=== PATIENT | male | born 1995 | race Asian ===

== ENCOUNTER 2020-04-21 21:22 | Inpatient (IN) | payer OTHER ==
[~2020-04-21] VITALS: Ht 167.6 cm; Wt 68.7 kg
[2020-04-21 22:24] LABS: HEMATOCRIT 43.1 % (42.0-52.0); HEMOGLOBIN 14.2 g/dl (13.5-17.5); MEAN CORPUSCULAR HGB CONC 32.9 g/dl (32.0-36.5); PLATELET COUNT, AUTOMATED 219 10^3/uL (150-450); WHITE BLOOD COUNT 5.7 10^3/uL (4.0-10.0)
[2020-04-21 22:46] LABS: AMPHETAMINES LEVEL URINE NEGATIVE (NEGATIVE); BARBITURATES URINE NEGATIVE (NEGATIVE); BENZODIAZEPINES URINE NEGATIVE (NEGATIVE); CANNABINOIDS URINE NEGATIVE (NEGATIVE); COCAINE METABOLITE URINE NEGATIVE (NEGATIVE); METHADONE URINE NEGATIVE (NEGATIVE); OPIATES URINE NEGATIVE (NEGATIVE); PHENCYCLIDINE URINE NEGATIVE (NEGATIVE)
[2020-04-21 23:04] LABS: ACETAMINOPHEN LEVEL < 2.0 UG/ML (10.0-30.0); ALBUMIN 3.9 GM/DL (3.2-5.2); ALT/SGPT 21 U/L (12-78); BILIRUBIN,DIRECT 0.3 MG/DL (0.0-0.2); BILIRUBIN,TOTAL 0.9 MG/DL (0.2-1.0); BLOOD UREA NITROGEN 14 MG/DL (7-18); CALCIUM LEVEL 8.7 MG/DL (8.5-10.1); CARBON DIOXIDE LEVEL 29 MEQ/L (21-32); CHLORIDE LEVEL 107 MEQ/L (98-107); CREATININE FOR GFR 0.87 MG/DL (0.70-1.30); ETHYL ALCOHOL (ETHANOL) < 0.003 % (0.000-0.010); GLOMERULAR FILTRATION RATE > 60.0 (>60); GLUCOSE, FASTING 84 MG/DL (70-100); POTASSIUM SERUM 3.8 MEQ/L (3.5-5.1); SALICYLATE LEVEL < 1.7 MG/DL (5.0-30.0); SODIUM LEVEL 142 MEQ/L (136-145); TOTAL PROTEIN 7.6 GM/DL (6.4-8.2)
[2020-04-22 01:56] LABS: RSV AMPLIFICATION NEGATIVE (NEGATIVE)
[2020-04-22] MEDS ORDERED: OLANZapine ORAL DISINTEGRATING TAB 5MG PO PRN (02:15)
[2020-04-22] MEDS ORDERED: MAALOX 30 ML SUSP *UDC PO PRN (02:15)
[2020-04-22] MEDS ORDERED: ACETAMINOPHEN TAB 650MG DOSE (2X325MG) PO PRN (02:15)
[2020-04-22] MEDS ORDERED: traZODone 50 MG TAB PO PRN (02:15)
[2020-04-22] MEDS ORDERED: MOM 30ML SUSPENSION UDC PO PRN (02:15)
[2020-04-22 03:09] VITALS: BP 108/74
--- NOTE | 2020-04-22 13:50 | MHHPEPDOC ---
General Date Of Admission: Apr 22, 2020 Legal Status: 9.39 Chief Complaint "Stress related from work, I have a difficult time coping with it and couldn't handle it in a healthy manner" History of Present Illness HISTORY OF THE PRESENT ILLNESS: Patient is a 24 -year-old , male, who reports he was having a difficult time at work and subsequently was having thoughts to either harm self or do something that would get him discharged from the . All states that last month, all of his coworkers were on leave and that he was the only one at work and that people kept piling more work on him. He states he was stressed at work and would look forward to going home to [facility], only to get multiple calls and texts by his coworkers criticizing his work. He states that his plan to injure himself would be "nothing serious, maybe hurt my hand or something." All reports he told his BRAIN that he didn't feel safe to deal with weapons or live ammo, which gave them a "red flag." He states that he didn't have thoughts to hurt/kill himself but reports he told them "I don't think I'm in the right mind to be around weapons." as he was having "self destructive thoughts to end his career." When asked what this meant, All states that he knows it is illegal to carry and transport weapons in a personal vehicle and if someone did that and got pulled over, they could be arrested and discharged from the . he states that he was in the frame of mind where he was thinking about "doing something like that" and was hoping to get pulled over so he could get out of the . He currently denies suicidal thoughts. Psychiatric Review of Systems Depression (2 or more weeks): depressed mood, anhedonia (reports he used to enjoy his job but now "I really don't have the heart for it." ), insomnia/hypersomnia (he reports having problems falling asleep, due to racing thoughts - sleeping about 3-4 hours per night. Reports having nightmares 2-3 t imes per week. ), feelings of worthlesness ("recently, yes" states he has felt unappreciated at work. ), decreased energy (recently), difficulty concentrating (reports he couldn't focus on tasks at work, states he had difficulties finishing tasks), denies (denies suicidal thoughts currently and TIE IN HAND) Tracie (4 or more days of): denies Psychosis: denies PTSD: denies Anxiety: situational anxiety, stressor related anxiety, other (reports having reacing thoughts about work) Past Psychiatric History Previous Psychiatric Diagnosis: denies Previous Psychiatric Admissions: denies Suicide Attempts: denies Psychiatric Follow-up: [facility] - last seen 04/15/20 Psychiatric medications: denies Past Medical History Medical Problems denies Head Injury: No Seizures: No Hospitalizations: Yes (denies ) Surgeries: No Family Medical/Psychiatric HX Medical Problems medical dad - diabetic psychiatric denies substance abuse denies suicide attempts/completions denies Psychiatric Disorders: No Addiction: No Suicide Attemps/Completions: No Addiction History alcohol (socially, once or twice a month, usually drinks 1-2 drinks daily) Social History Childhood: Patient states he grew up with mother and father, has one older brother, was born in [place], moved to [place], [place] when he was 4. he states he graduated in [place], [place], reports he did well in school and graduated. he states after he graduated, he attended college at the [employer], received an associate's in business and is currently enrolled, close to receiving his bachelor's in business. 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 Social Support: Legal: denies Marital: September 2019, no children Mental Status Examination General Appearance: well groomed, appears stated age, hospital scubs/clothing Build: average Demeanor: average Eye Contact: average Activity: average Behavior: cooperative Speech: clear, normal volume, reg/rate,rhythm,volume Mood: depressed Affect: appropriate, congruent Thought Process: logical/linear Thought Content (Delusions): none reported, denies SI, HI, AVH Thought Content (Other): none reported Thought Content (Aggressive): none reported Perception (Hallucinations): none reported Perception (Other): none reported Cognition (Impairment of): none reported Cognition(Intelligence Est.): above average Oriented: Awake, Alert, Oriented times three Insight: fair Judgment: Fair Psychosis: Denies Diagnoses adjustment disorder with depressed and anxious mood A-FIB/CHADSVASC A-FIB History Current/History of A-Fib/PAF?: No Current PO Anticoag Therapy: No Assessment 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 He states that he was admitted after he felt stressed and overwhelmed with work, as he is the only one working, (coworkers are on leave) and he feels that they keep piling work on him. He denies si but does report symptoms of both anxiety and depression due to work stress. All states that because of what is going on at work, he is unsure if he wants to make a career out of the , as they are not appreciating the work he is doing and feels that they continue to expect more of him and he is overwhelmed. Before admission, he was having thoughts of wanting to do something to get out of the , such as injuring his hand or doing something illegal to get chaptered out. At this time, he reports that he doesn't need medications but would like to learn some coping skills in order to effectively deal with his stress - had recently established himself at [facility]. He also does not feel this level of care is appropriate reports, "I'm not a danger to myself and others and would rather be home with my ," who patient states is a goos support for him. Initial Treatment Plan 1. Patient was admitted on a [9.39] status. 2. Complete history was obtained. 3. With patients permission, family will be contacted and database will be expanded. 4. Patients medication regimen will be reviewed and changed accordingly. 5. Patient will be provided with protected environment. 6. Patient will be treated with individual, group, and milieu therapies. 7. Patient will receive supportive psych-education. 8. Discharge planning will commence immediately. 9. Outpatient follow-up treatment will be strongly recommended. 10. The initial treatment plan will focus initially on: * Depression. * Risk for suicide. ESTIMATED LENGTH OF STAY 1-3 DAYS. TIME SPENT COUNSELING AND COORDINATING INITIAL CARE: 60 minutes. Vital Signs Vital Signs Date Time Temp Pulse Resp B/P (MAP) Pulse Ox O2 Delivery O2 Flow Rate FiO2 04/22/20 03:09 97.5 74 16 108/74 (85) 98 Room Air Laboratory Data 24H Labs Laboratory Tests 2 04/21/20 22:12: Nucleated Red Blood Cells % (auto) 0.0, Anion Gap 6L, Glomerular Filtration Rate > 60.0, Calcium Level 8.7, Total Bilirubin 0.9, Direct Bilirubin 0.3H, Aspartate Amino Transf (AST/SGOT) 17, Alanine Aminotransferase (ALT/SGPT) 21, Alkaline Phosphatase 77, Total Protein 7.6, Albumin 3.9, Albumin/Globulin Ratio 1.1, Thyroid Stimulating Hormone (TSH) 1.800, Salicylates Level < 1.7L, Urine Opiates Screen NEGATIVE, Urine Methadone Screen NEGATIVE, Acetaminophen Level < 2.0L, Urine Barbiturates Screen NEGATIVE, Urine Phencyclidine Screen NEGATIVE, Urine Amphetamines Screen NEGATIVE, Urine Benzodiazepines Screen NEGATIVE, Urine Cocaine Metabolite Screen NEGATIVE, Urine Cannabinoids Screen NEGATIVE, Ethyl Alcohol Level < 0.003 04/22/20 01:08: Coronavirus (COVID-19)(PCR) NEGATIVE, Influenza Type A (RT-PCR) NEGATIVE, Influenza Type B (RT-PCR) NEGATIVE, Respiratory Syncytial Virus (PCR) NEGATIVE CBC/BMP Laboratory Tests 04/21/20 22:12 Medications No Active Prescriptions or Reported Meds Allergies Coded Allergies: No Known Allergies (Unverified , 04/21/20) CURRY KESSLER NP Apr 22, 2020 13:50
--- NOTE | 2020-04-22 14:34 | HPEPDOC ---
[facility] Medical History & Physical History and Physical CHIEF COMPLAINT: HISTORY OF PRESENT ILLNESS: 24 yo male for possible suicidal ideation with thoughts of self harm secondary to social/work stressors, in hopes of being discharged from . He states that his plan to injure himself would be "nothing serious, maybe hurt my hand or something." Klaus reports he told his BRAIN that he didn't feel safe to deal with weapons or live ammo, which gave them a "red flag." He states that he didn't have thoughts to hurt/kill himself but reports he told them "I don't think I'm in the right mind to be around weapons." as he was having "self destructive thoughts to end his career." When asked what this meant, Klaus states that he knows it is illegal to carry and transport weapons in a personal vehicle and if someone did that and got pulled over, they could be arrested and discharged from the . He denies chest pain, shortness of breath, headaches, N/V/D. PAST MEDICAL HISTORY: Denies ALLERGIES: Please see below. REVIEW OF SYSTEMS: Negative except as per HPI. HOME MEDICATIONS: Please see below. PHYSICAL EXAMINATION: VITAL SIGNS: See below General: NAD, sitting comfortably in chair HEENT: NC/AT, EOMI Lungs: CTA B/L Heart: +S1S2, RRR Abd: soft, NT, +BS Ext: no edema LABORATORY DATA: See below. MICROBIOLOGY: Please see below. A/P: 24 yo male for possible suicidal ideation and thoughts of self harm secondary to social stressors at work, no past medical history. #SI/self harm - follow as per primary team - psychiatry Thank you for this consultation. Please re-consult as needed. Vital Signs Vital Signs Date Time Temp Pulse Resp B/P (MAP) Pulse Ox O2 Delivery O2 Flow Rate FiO2 04/22/20 03:09 97.5 74 16 108/74 (85) 98 Room Air Laboratory Data Labs 24H Laboratory Tests 2 04/21/20 22:12: Nucleated Red Blood Cells % (auto) 0.0, Anion Gap 6L, Glomerular Filtration Rate > 60.0, Calcium Level 8.7, Total Bilirubin 0.9, Direct Bilirubin 0.3H, Aspartate Amino Transf (AST/SGOT) 17, Alanine Aminotransferase (ALT/SGPT) 21, Alkaline Phosphatase 77, Total Protein 7.6, Albumin 3.9, Albumin/Globulin Ratio 1.1, Thyroid Stimulating Hormone (TSH) 1.800, Salicylates Level < 1.7L, Urine Opiates Screen NEGATIVE, Urine Methadone Screen NEGATIVE, Acetaminophen Level < 2.0L, Urine Barbiturates Screen NEGATIVE, Urine Phencyclidine Screen NEGATIVE, Urine Amphetamines Screen NEGATIVE, Urine Benzodiazepines Screen NEGATIVE, Urine Cocaine Metabolite Screen NEGATIVE, Urine Cannabinoids Screen NEGATIVE, Ethyl Alcohol Level < 0.003 04/22/20 01:08: Coronavirus (COVID-19)(PCR) NEGATIVE, Influenza Type A (RT-PCR) NEGATIVE, Influenza Type B (RT-PCR) NEGATIVE, Respiratory Syncytial Virus (PCR) NEGATIVE CBC/BMP Laboratory Tests 04/21/20 22:12 Home Medications No Active Prescriptions or Reported Meds Allergies Coded Allergies: No Known Allergies (Unverified , 04/21/20) A-FIB/CHADSVASC A-FIB History Current/History of A-Fib/PAF?: No KLAUS CHANG MD Apr 22, 2020 14:34
[2020-04-22 17:33] VITALS: BP 122/64
[2020-04-23 06:41] VITALS: BP 112/61
--- NOTE | 2020-04-23 10:04 | MHDSPDOC ---
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 All states that last month, all of his coworkers were on leave and that he was the only one at work and that people kept piling more work on him. He states he was stressed at work and would look forward to going home to [facility], only to get multiple calls and texts by his coworkers criticizing his work. He states that his plan to injure himself would be "nothing serious, maybe hurt my hand or something." All reports he told his BRAIN that he didn't feel safe to deal with weapons or live ammo, which gave them a "red flag." He states that he didn't have thoughts to hurt/kill himself but reports he told them "I don't think I'm in the right mind to be around weapons." as he was having "self destructive thoughts to end his career." When asked what this meant, All states that he knows it is illegal to carry and transport weapons in a personal vehicle and if someone did that and got pulled over, they could be arrested and discharged from the . he states that he was in the frame of mind where he was thinking about "doing something like that" and was hoping to get pulled over so he could get out of the . He currently denies suicidal thoughts. CONSULTANTS INVOLVED: See Medical H + P by Hospitalist TREATMENT AND PROGRESS ON THE UNIT: Patient was admitted to the [facility] on a legal status he was afforded the following treatment modalities: 1) Individual Therapy 2) Group Therapy 3) Medication Management 4) Milieu Therapy 5) Safe Environment HOSPITAL COURSE: Patient was admitted to [facility] on a legal status. He declined the offer of medication therapy but was calm and cooperative on the unit, friendly in the milieu and stated that he did not feel depression with suicidal thoughts at the time of the initial psychiatric interview. DISCHARGE ASSESSMENT: In today's interview, patient is alert and oriented, pts dress is appropriate. Hygiene and grooming is well-kempt. Smiles on approach and is pleasant and engaged in the interview. Denies depression and anxiety. Denies suicidal and homicidal ideation, planning or intent. He denies and is not observed with fuad, psychotic symptoms of delusions, bizarre thinking, obsessions, paranoia, ruminations illogical thoughts, flight of ideas or having poor insight and judgement. 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 He reports good supports at home, and feels that once he can leave the that he will be able to improve from this current event. He is requesting discharge today, he does not pose a threat to himself or others and does not meet criteria for continued hospitalization. Patient has normal mentation, declines further hospitalization on a voluntary status and meets criteria for discharge today. 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 He denies intent. Speech: Is fluid, conversant, normal rate, tone and volume Language skills are intact Thought processes including: linear and goal oriented Thought content: denies depression and anxiety. Denies suicidal/homicidal ideation, planning or intent. Abstract reasoning, and computation: fair Description of associations: denies, none observed Description of abnormal or psychotic thoughts: denies, none observed. Judgment: fair Insight: fair Orientation: alert and oriented to person, place, time and situation Recent and remote memory: intact Attention span and concentration: good Language: expansive Fund of knowledge: average Mood: Euthymic Mood Affect: reactive MEDICATIONS ON DISCHARGE: None. Patient declined offer of anxiolytic or anti-depression. PLAN/FOLLOWUP ARRANGEMENTS: [facility] The amount of time spent in the coordination of care for this patient was appro ximately 25 minutes. Vital Signs/I&Os Vital Signs Date Time Temp Pulse Resp B/P (MAP) Pulse Ox O2 Delivery O2 Flow Rate FiO2 04/23/20 06:41 98.8 84 14 112/61 (78) 98 Room Air Medications No Active Prescriptions or Reported Meds Allergies Coded Allergies: No Known Allergies (Unverified , 04/21/20) CURRY KESSLER NP Apr 23, 2020 10:04
== END 2020-04-23 11:28 | disposition home or self-care (01) | DRG 882 ==
LOC: M ED 21:22 → M ED INP 21:23 → M PSY 04-22 02:58
PROVIDERS: ADMIT Psychiatry & Neurology Psychiatry; ATTEND Psychiatry & Neurology Psychiatry
DX: F43.23 Adjustment disorder with mixed anxiety and depressed mood (principal); R45.851 Suicidal ideations; Z56.3 Stressful work schedule

== ENCOUNTER 2021-07-05 12:06 | Emergency (ER) | payer OTHER ==
[~2021-07-05] VITALS: Ht 167.6 cm; Wt 70.3 kg
[2021-07-05] MEDS ORDERED: IBUP-359 PO (12:20)
[2021-07-05 14:42] VITALS: BP 126/82
[2021-07-05 22:08] LABS: GC DNA AMPLIFICATION NEGATIVE (NEGATIVE)
[2021-07-06] MEDS ORDERED: DOXY100T PO (07:23)
== END 2021-07-05 14:45 | disposition home or self-care (01) ==
LOC: M ED 12:06
DX: N50.3 Cyst of epididymis (principal)